=== PATIENT | female | born 1980 | race Caucasian/White ===

== ENCOUNTER 2017-12-10 22:25 | Emergency (ER) | payer OTHER, SELFPAY ==
[2017-12-10 22:26] VITALS: BP 139/65; PULSE 83; RESP 17; TEMP 37.9; O2SAT 95; BMI 23.6
--- NOTE | 2017-12-11 00:01 | ED.DCSUM_ITS ---
- ER Visit Summary Date of Service: 12/10/17 Chief Complaint: Fever History of Present Illness: The patient is a 37 F who is on her third day of fever, she was diagnosed with influenza a couple days ago and started on Tamiflu. She is healthy otherwise. She tested positive for influenza A. All day today, her fever has not come down below 102. It was 103 prior to coming here, they called the nurse tobacco prevention health educator, who advised that they come, she took Tylenol prior to coming here. Her temperature at triage is 100.3, and now, an hour later, she feels much better. She has had no dyspnea, disorientation, sore throat. She has had some myalgias, but those are much better now that her fever is down. Physical Examination: Well-appearing in no distress. Lungs are clear to auscultation throughout. Pulse ox 95% on room air. The rest of her vital signs are normal. Her neck is supple, she is alert and oriented ?3 and appropriate. No rashes. Test Results: n/a Emergency Department Course and Treatment: Reassured. I do not think she has any complications of influenza at this time. We discussed alternating Tylenol and ibuprofen at maximum doses, which they were not doing. They are comfortable with this plan and request a prophylaxis prescription for her who has Crohn's disease which I think is reasonable. They have 2 children that are young and already on prophylaxis. Treatment Plan: Supportive, as above Disposition: Discharge home Impression: Influenza a This note was generated with [employer] dictation software. It may contain incorrect words, spelling, and punctuation that were not noted in review of the chart prior to signing ED Disposition - Plan for ED Patient: Disposition: Home or Assisted Living Chief Complaint: Fever Instructions: ED Flu Referrals: Asael Rivas DO [Primary Care Provider] - As Needed Additional Instructions: May alternate Tylenol 1000 mg and ibuprofen 600 mg, so that you are taking something every 3 hours.
[2017-12-11 00:14] VITALS: TEMP 37.3
[2017-12-11 00:16] VITALS: BP 132/63; PULSE 80; RESP 18; O2SAT 96
== END 2017-12-11 00:20 | disposition home or self-care (01) ==
LOC: ED 12-11 00:19
PROVIDERS: Emergency Provider Emergency Medicine; Family Provider Student in an Organized Health Care Education/Training Program; PCP Student in an Organized Health Care Education/Training Program
DX: J09.X2 Influenza due to identified novel influenza A virus with other respiratory manifestations (principal)
CPT/HCPCS: 99282